=== PATIENT | male | born 1980 | race Caucasian/White ===

== ENCOUNTER 2024-09-08 13:04 | Emergency (ER) | payer SELFPAY ==
[~2024-09-08] VITALS: Ht 172.7 cm; Wt 112.5 kg
[2024-09-08 13:12] VITALS: PULSE 77; RESP 18; TEMP 98.5
[2024-09-08] MEDS: KETOROLAC TROMETHAMINE 30 MG/ML VIAL IM STA (14:27)
[2024-09-08] MEDS ORDERED: IBUPROFEN800 MG PO (14:49)
[2024-09-08] MEDS ORDERED: PREDNISONE20 MG PO (14:50)
[2024-09-08] MEDS ORDERED: PEPCID20 MG PO (14:51)
[2024-09-08] MEDS ORDERED: DEXAMETHASONE SOD PHOS 10 MG/1 ML VIAL IM ONE (15:00)
[2024-09-08 15:14] VITALS: BP 131/79; PULSE 80; RESP 16; TEMP 98.4; O2SAT 97
[2024-09-08] MEDS: DEXAMETHASONE SOD PHOS INJ 4 MG/ML SDV IM ONE (15:22)
== END 2024-09-08 15:22 | disposition home or self-care (01) ==
LOC: FSED 13:38
DX: M79.671 Pain in right foot (principal); M77.51 Other enthesopathy of right foot and ankle; I10 Essential (primary) hypertension; M10.9 Gout, unspecified
CPT/HCPCS: 73630; 96372; 99283; J1100; J1885